=== PATIENT | male | born 1940 | race Caucasian/White ===

== ENCOUNTER → 2020-02-22 | Outpatient (CLI) | payer MEDICARE ==
--- NOTE | 2020-02-25 14:01 | HM ---
HOLTER MONITOR REPORT HOLTER MONITOR: A 24 hour Holter monitor shows a paced rhythm, likely physiologic septal pacing, appears to be nonselective capture. One slow run of AIVR at 75 beats per minute, occasional PVCs, no bradyarrhythmias. MMSUMI / KRISTIEN: [id number] /
== END | disposition home or self-care (01) ==
LOC: RADECHMAIN 12:12
PROVIDERS: ATTEND Family Medicine
DX: R00.0 Tachycardia, unspecified (principal)
CPT/HCPCS: 93225; 93226